=== PATIENT | male | born 1950 | race Caucasian/White ===

== ENCOUNTER 2020-08-21 16:03 | Emergency (ER) | payer MEDICARE ==
[~2020-08-21] VITALS: Ht 175.3 cm; Wt 80.0 kg
[2020-08-21 23:02] VITALS: BP 154/79
== END 2020-08-21 23:05 | disposition home or self-care (01) ==
LOC: ER 17:36
DX: T17.508A Unspecified foreign body in bronchus causing other injury, initial encounter (principal); X58.XXXA Exposure to other specified factors, initial encounter; Y93.89 Activity, other specified; Y92.89 Other specified places as the place of occurrence of the external cause; Y99.8 Other external cause status
CPT/HCPCS: 71045; 71046; 99284